=== PATIENT | female | born 1945 | race Caucasian/White ===

== ENCOUNTER 2017-04-24 12:07 | Emergency (ER) | payer OTHER ==
[~2017-04-24] VITALS: Ht 172.7 cm; Wt 111.4 kg
--- NOTE | ~2017-04-24 | EKG ---
PATIENT: GUSTAVO IZAGUIRRE UNIT #: [id number] Ventricular Rate: 106 BPM Atrial Rate: 106 BPM P-R Interval: 264 ms QRS Duration: 112 ms Q-T Interval: 342 ms QTC Calculation(Bezet): 454 ms Calculated R [place]: -52 degrees Calculated T [place]: 72 degrees Diagnosis Line: Atrial fibrillation versus atrial tachycardia Diagnosis Line: Left anterior fascicular block Diagnosis Line: Non-specific intra-ventricular conduction delay Diagnosis Line: Abnormal ECG Diagnosis Line: When compared with ECG of 30-MAR-2016 23:01, Diagnosis Line: Vent. rate has increased BY 52 BPM Diagnosis Line: Rhythm no longer sinus Diagnosis Line: T wave inversion now evident in Lateral leads Diagnosis Line: Confirmed by CATHY MEYERS MD ([id number]) on Diagnosis Line: 04/26/2017 4:51:00 PM INTERPRETING MD: SUPRIYA
--- NOTE | ~2017-04-24 | CR72 ---
[facility] A Service of [facility] RADIOLOGY TEXT RESULTS PATIENT: GUSTAVO IZAGUIRRE LOCATION: [facility] : 41 UNIT #: [id number] AGE: [address]: Nic Eugene MD SEX: F ORDER DR: [id number] [facility] [address] [place], [place] [address] [id number] E MR#: [id number] Acc #: [id number] NAME: GUSTAVO IZAGUIRRE. : 1945 SEX: F STUDY DATE/TIME: 04/24/2017 12:41 UNIT: [facility] ROOM: STUDY DESCRIPTION: CR Chest Single View Portable Attending Physician: Nic Eugene M.D. Ordering Physician: Nic Eugene M.D. Primary Care Physician: Oleg Lopez M.D. MEDICAL IMAGING REPORT This report is preliminary unless electronic signature is present EXAM Portable chest INDICATION Patient has chest pain starting today. COMPARISON 11/12/2011 FINDINGS A portable view of the chest was obtained. The heart size and vascularity are normal. The lungs are clear. There are postoperative changes in the right shoulder. IMPRESSION No active disease. Dictated by... Chava Mckenzie M.D. THIS IS AN ELECTRONICALLY VERIFIED REPORT Chava Mckenzie M.D. at 04/26/2017 6:16 AM KENAN/gayla TD: 04/25/2017 15:24 JOB #: [id number] MEDICAL IMAGING REPORT Page 1 of 1 COPY
[~2017-04-24 12:07] MED LIST: ALEVE; ATENOLOL PO; FISH OIL 1,0001 CAP PO; FLEXERIL10 MG PO; GLYNASE PO; IRON1 TA1 PO; JANUMET; JANUVIA PO; KCL PO; LASIX PO; LEVEMIR100 UNITS/ SUBQ; LORTAB 10-5001 EACH PO; MULTIVITAMIN1 UDCAP; PACERONE PO; PRAVACHOL PO; PROTONIX PO; SYNTHROID PO
[2017-04-24] MEDS ORDERED: FUROSEMIDE80 MG PO (12:15)
[2017-04-24] MEDS ORDERED: WARFARIN SODIUM4 M1 PO (12:15)
[2017-04-24] MEDS ORDERED: WARFARIN SODIUM1 M1 PO (12:15)
[2017-04-24] MEDS ORDERED: SYNTHROID175 MCG PO (12:16)
[2017-04-24] MEDS ORDERED: ULORIC80 MG PO (12:16)
[2017-04-24] MEDS ORDERED: EZETIMIBE10 MG PO (12:17)
[2017-04-24] MEDS ORDERED: TENORMIN25 M1 PO (12:17)
[2017-04-24] MEDS ORDERED: ASPIRIN81 MG PO (12:18)
[2017-04-24] MEDS ORDERED: COZAAR100 MG PO (12:18)
[2017-04-24] MEDS ORDERED: AMIODARONE HCL200 MG PO (12:19)
[2017-04-24 12:43] LABS: BASOPHIL# 0.1 X10e3 (0-0.3); BASOPHIL% 0.6 % (0-2.5); EOSINOPHIL# 0.1 X10e3 (0-0.7); HEMATOCRIT 35.9 % (35.0-45.0); HEMOGLOBIN 12.1 gm/dL (12.0-16.0); LYMPHOCYTE# 0.9 X10e3 (1.0-3.5); LYMPHOCYTE% 9.2 % (17.0-45.0); MEAN CELL VOLUME 83.1 FL (83-96); MEAN CORPUSCULAR HEMOGLOBIN 27.9 PG (28-34); MEAN CORPUSCULAR HGB CONC 33.6 g/dL (30-36); MEAN PLATELET VOLUME 9.1 FL (6.5-11.5); MONOCYTE# 0.8 X10e3 (0-1.0); MONOCYTE% 8.6 % (3.0-12.0); NEUTROPHIL% 80.6 % (40-75); PLATELET COUNT 213 X10e3 (140-420); RED BLOOD COUNT 4.32 X10e (3.90-5.30); RED CELL DISTRIBUTION WIDTH 14.3 % (11.0-15.5); WHITE BLOOD COUNT 9.9 X10e3 (4.0-10.5)
[2017-04-24 12:54] LABS: INR 1.5; PROTHROMBIN TIME (PATIENT) 16.2 SECONDS (10.0-11.7)
[2017-04-24 12:58] LABS: POC - CKMB 3.7 ng/mL (0.0-7.9); POC - TROPONIN <0.05 ng/mL (<=0.05)
[2017-04-24 13:23] LABS: BUN/CREATININE RATIO 31.05; CALCIUM SERUM 8.8 mg/dL (8.4-10.2); CREATININE SERUM 1.9 mg/dL (0.6-1.4); GLOM FILT RATE Estimated 25.7 mL/min (>60); POTASSIUM 3.9 mmol/L (3.5-5.1)
[2017-04-24 14:41] LABS: DIFF IND NO
== END 2017-04-24 15:14 | disposition home or self-care (01) ==
LOC: CED 12:07
PROVIDERS: Emergency Medicine
DX: I48.91 Unspecified atrial fibrillation (principal); I10 Essential (primary) hypertension; E78.5 Hyperlipidemia, unspecified; Z79.01 Long term (current) use of anticoagulants; Z79.899 Other long term (current) drug therapy
CPT/HCPCS: 36415; 71010; 80048; 82553; 84443; 84484; 85025; 85610; 93005; 99285